=== PATIENT | female | born 1990 ===

== ENCOUNTER 2018-08-31 07:56 | Emergency (ER) | payer OTHER ==
[~2018-08-31] VITALS: Ht 157.5 cm; Wt 59.9 kg
[2018-08-31] MEDS ORDERED: OBSTETRIX DHA1 EACH (08:14)
== END 2018-08-31 10:26 | disposition home or self-care (01) ==
LOC: ER 07:56
DX: O26.891 Other specified pregnancy related conditions, first trimester (principal); M79.671 Pain in right foot; Z34.01 Encounter for supervision of normal first pregnancy, first trimester